=== PATIENT | female | born 1945 | race Caucasian/White ===

== ENCOUNTER 2017-01-14 19:56 | Emergency (ER) | payer MEDICARE, BC, OTHER ==
[2017-01-14] MEDS ORDERED: LORazepam 1 MG TAB PO STA (20:44)
[2017-01-14] MEDS ORDERED: LISINOPRIL-HCTZ 10-12.5 MG 1 EACH TAB PO STA (20:45)
--- NOTE | 2017-01-14 20:49 | ED ---
General Adult HPI - General Chief complaint: Recheck/Abnormal Lab/Rx Stated complaint: HBP Time Seen by Provider: 01/14/17 20:37 Source: patient, RN notes reviewed Mode of arrival: ambulatory Limitations: no limitations - History of Present Illness Initial comments: Patient is a pleasant 71-year-old female presenting to the emergency department with concerns right blood pressure. Patient was just diagnosed with high blood pressure last week. Patient was started on lisinopril 10/hydrochlorothiazide 12.5 daily. Patient has been checking her blood pressure regularly. Patient states normally systolic blood pressure has been around 140. Patient states today systolic blood pressure was near 200. Patient has been having some discomfort related to her shingles. Patient has also had some increased stress recently. Patient denies any chest pain. No weakness. No headache. No confusion. - Related Data Home Medications Medication Instructions Recorded Confirmed Allergy Tab(Unknown) 1 tab PO DAILY 01/14/17 01/14/17 Ibuprofen [Motrin] 200 - 400 mg PO Q6HR PRN 01/14/17 01/14/17 Lisinopril-Hctz 10-12.5 mg 1 tab PO DAILY 01/14/17 01/14/17 [Zestoretic 10-12.5] valACYclovir HCL [Valacyclovir] 1,000 mg PO TID PRN 01/14/17 01/14/17 Previous Rx's Medication Instructions Recorded ALPRAZolam [Xanax] 0.5 mg PO Q8HR PRN #10 tablet 01/14/17 Allergies Allergy/AdvReac Type Severity Reaction Status Date / Time codeine Allergy Nausea & Verified 01/14/17 20:16 Vomiting Review of Systems ROS Statement: Those systems with pertinent positive or pertinent negative responses have been documented in the HPI. ROS Other: All systems not noted in ROS Statement are negative. Constitutional: Denies: fever Eyes: Denies: eye pain ENT: Denies: ear pain Respiratory: Denies: cough, dyspnea Cardiovascular: Denies: chest pain Endocrine: Denies: fatigue Gastrointestinal: Denies: abdominal pain Genitourinary: Denies: urgency Musculoskeletal: Denies: back pain Skin: Reports: rash (Diagnosis shingles, is healing.) Neurological: Denies: headache, weakness, numbness, paresthesias, confusion Psychiatric: Reports: anxiety Past Medical History Past Medical History: Hypertension History of Any Multi-Drug Resistant Organisms: None Reported Past Surgical History: Hysterectomy Past Psychological History: Anxiety Smoking Status: Never smoker Past Alcohol Use History: None Reported Past Drug Use History: None Reported General Exam Limitations: no limitations General appearance: alert, in no apparent distress Head exam: Present: atraumatic Eye exam: Present: normal appearance, PERRL ENT exam: Present: normal oropharynx Neck exam: Present: normal inspection Respiratory exam: Present: normal lung sounds bilaterally Cardiovascular Exam: Present: regular rate, normal rhythm GI/Abdominal exam: Present: soft. Absent: tenderness Extremities exam: Present: normal inspection Neurological exam: Present: alert, oriented X3, CN II-XII intact. 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 DE 140. QRS 100. QT 384. QTC 446. Normal axis. Normal QRS. Normal ST-T. Medical Decision Making - Medical Decision Making Patient reexamined and resting comfortably in bed. Patient does request medication for anxiety at home. Blood pressure is improved to 185/85. - Lab Data Result diagrams: 01/14/17 21:00 01/14/17 21:00 Lab Results 01/14/17 01/14/17 01/14/17 Range/Units 21:00 21:00 21:16 WBC 8.0 (3.8-10.6) k/uL RBC 4.35 (3.80-5.40) m/uL Hgb 13.8 (11.4-16.0) gm/dL Hct 39.0 (34.0-46.0) % MCV 89.5 (80.0-100.0) fL MCH 31.8 (25.0-35.0) pg MCHC 35.5 (31.0-37.0) g/dL RDW 12.8 (11.5-15.5) % Plt Count 293 (150-450) k/uL Neutrophils % 74 % Lymphocytes % 17 % Monocytes % 6 % Eosinophils % 1 % Basophils % 1 % Neutrophils # 5.9 (1.3-7.7) k/uL Lymphocytes # 1.3 (1.0-4.8) k/uL Monocytes # 0.5 (0-1.0) k/uL Eosinophils # 0.1 (0-0.7) k/uL Basophils # 0.1 (0-0.2) k/uL Sodium 131 L (137-145) mmol/L Potassium 4.0 (3.5-5.1) mmol/L Chloride 94 L (98-107) mmol/L Carbon Dioxide 28 (22-30) mmol/L Anion Gap 9 mmol/L BUN 10 (7-17) mg/dL Creatinine 0.60 (0.52-1.04) mg/dL Est GFR (MDRD) Af Amer >60 (>60 ml/min/1.73 sqM) Est GFR (MDRD) Non-Af >60 (>60 ml/min/1.73 sqM) Glucose 99 (74-99) mg/dL Calcium 9.5 (8.4-10.2) mg/dL Total Bilirubin 0.7 (0.2-1.3) mg/dL AST 34 (14-36) U/L ALT 50 (9-52) U/L Alkaline Phosphatase 77 (38-126) U/L Total Protein 7.1 (6.3-8.2) g/dL Albumin 4.2 (3.5-5.0) g/dL Urine Color Light Yellow Urine Appearance Clear (Clear) Urine pH 7.5 (5.0-8.0) Ur Specific [place] 1.004 (1.001-1.035) Urine Protein Negative (Negative) Urine Glucose (UA) Negative (Negative) Urine Ketones Negative (Negative) Urine Blood Negative (Negative) Urine Nitrite Negative (Negative) Urine Bilirubin Negative (Negative) Urine Urobilinogen <2.0 (<2.0) mg/dL Ur Leukocyte Esterase Negative (Negative) - Radiology Data Radiology results: image reviewed (X-ray shows no acute process) Disposition Clinical Impression: Hypertension Disposition: HOME SELF-CARE Condition: Stable Instructions: Hypertension (ED) Additional Instructions: Please follow-up with your primary care physician in the next couple of days for recheck. If blood pressure is high you may take 1 additional dose of your blood pressure medication daily. Return for uncontrolled blood pressure, chest pain or weakness, worsening symptoms or other concerns. Prescriptions: ALPRAZolam [Xanax] 0.5 mg PO Q8HR PRN #10 tablet PRN Reason: Anxiety Referrals: None,Stated [Primary Care Provider] - 1-2 days Spenser Rice MD [STAFF PHYSICIAN] - 1-2 days
--- NOTE | 2017-01-14 21:13 | XR ---
EXAMINATION TYPE: XR chest 2V DATE OF EXAM: 01/14/2017 9:09 PM COMPARISON: NONE HISTORY: Hypertension per order. TECHNIQUE: Frontal and lateral views of the chest are obtained. FINDINGS: There is no focal air space opacity, pleural effusion, or pneumothorax seen. The cardiac silhouette size is within normal limits with ectatic thoracic aorta is seen. Retrocardiac opacity is consistent with moderate size hiatal hernia seen better on frontal view versus lateral view The osse ous structures are intact. IMPRESSION: No acute cardiopulmonary process.
[2017-01-14 21:23] LABS: ALT 50 U/L (9-52); AST 34 U/L (14-36); Alkaline Phosphatase 77 U/L (38-126); Anion Gap 9 mmol/L; Blood Urea Nitrogen 10 mg/dL (7-17); Calcium 9.5 mg/dL (8.4-10.2); Carbon Dioxide 28 mmol/L (22-30); Chloride 94 mmol/L (98-107); Glucose 99 mg/dL (74-99); Non-African American GFR(MDRD) >60 (>60 ml/min/1.73 sqM); Sodium 131 mmol/L (137-145); Total Bilirubin 0.7 mg/dL (0.2-1.3); Total Protein 7.1 g/dL (6.3-8.2)
[2017-01-14 21:24] LABS: Appearance,Urine Clear (Clear); Bilirubin,Urine Negative (Negative); Glucose,Urine (UA) Negative (Negative); Ketones,Urine Negative (Negative); Leukocyte Esterase,Urine Negative (Negative); Nitrite,Urine Negative (Negative); PH, Urine 7.5 (5.0-8.0); Protein,Urine Negative (Negative); Specific Gravity,Urine 1.004 (1.001-1.035); UA Billing (MACRO vs. MICRO) CHEM; Urobilinogen,Urine <2.0 mg/dL (<2.0)
[2017-01-14 21:31] LABS: Basophils # (A) 0.1 k/uL (0-0.2); Basophils % (A) 1 %; CH 33.3; CHCM 37.3; Eosinophils # (A) 0.1 k/uL (0-0.7); Eosinophils % (A) 1 %; HDW 2.67; HGB 13.8 gm/dL (11.4-16.0); Luc # (Auto) 0.15; Luc % (Auto) 2; Lymphocytes # (A) 1.3 k/uL (1.0-4.8); Lymphocytes % (A) 17 %; MCH 31.8 pg (25.0-35.0); MCHC 35.5 g/dL (31.0-37.0); MCV 89.5 fL (80.0-100.0); Mean Platelet Volume 6.8; Monocytes # (A) 0.5 k/uL (0-1.0); Monocytes % (A) 6 %; Neutrophils # (A) 5.9 k/uL (1.3-7.7); Neutrophils % (A) 74 %; RBC 4.35 m/uL (3.80-5.40); RDW 12.8 % (11.5-15.5); WBC (Perox) 8.12
[2017-01-14 22:10] VITALS: PULSE 77
[2017-01-14 22:40] VITALS: BP 175/94; RESP 16; TEMP 97.6
== END 2017-01-14 22:44 | disposition home or self-care (01) ==
LOC: EC 19:56
DX: I10 Essential (primary) hypertension (principal); F41.9 Anxiety disorder, unspecified; Z79.899 Other long term (current) drug therapy; Z88.5 Allergy status to narcotic agent
CPT/HCPCS: 36415; 71020; 80053; 81003; 85025; 93005; 99284

== ENCOUNTER 2020-12-15 14:04 | Emergency (ER) | payer MEDICARE, OTHER ==
[2020-12-15 14:23] VITALS: RESP 20
[2020-12-15] MEDS ORDERED: DIPH,PERTUS(ACELL)TETVAC-LF 0.5 ML VIAL IM ONE (14:46)
--- NOTE | 2020-12-15 14:46 | ED ---
Upper Extremity HPI - General Chief Complaint: Extremity Injury, Upper Stated Complaint: Rt Middle Finger Injury Time Seen by Provider: 12/15/20 14:38 Source: patient, RN notes reviewed Mode of arrival: ambulatory Limitations: no limitations - History of Present Illness MD Complaint: Injury to:: finger (right middle) Other Injuries: none Handedness: right Place: home Improves With: immobilization (elevation) Worsens With: other (palpation) Context: crush (caught in shed door last night at 1800) - Related Data Home Medications Medication Instructions Recorded Confirmed Allergy Tab(Unknown) 1 tab PO DAILY 01/14/17 01/14/17 Ibuprofen [Motrin] 200 - 400 mg PO Q6HR PRN 01/14/17 01/14/17 Lisinopril-Hctz 10-12.5 mg 1 tab PO DAILY 01/14/17 01/14/17 [Zestoretic 10-12.5] valACYclovir HCL [Valacyclovir] 1,000 mg PO TID PRN 01/14/17 01/14/17 Previous Rx's Medication Instructions Recorded ALPRAZolam [Xanax] 0.5 mg PO Q8HR PRN #10 tablet 01/14/17 Clindamycin HCl 450 mg PO Q8HR 10 Days #30 cap 12/15/20 Allergies Allergy/AdvReac Type Severity Reaction Status Date / Time codeine Allergy Nausea & Verified 01/14/17 20:16 Vomiting Penicillins Allergy Rash/Hives Verified 12/15/20 14:23 Review of Systems ROS Statement: Those systems with pertinent positive or pertinent negative responses have been documented in the HPI. ROS Other: All systems not noted in ROS Statement are negative. Past Medical History Past Medical History: Hypertension History of Any Multi-Drug Resistant Organisms: None Reported Past Surgical History: Hysterectomy Past Psychological History: Anxiety Smoking Status: Never smoker Past Alcohol Use History: None Reported Past Drug Use History: None Reported General Exam Limitations: no limitations Course Vital Signs 12/15/20 14:19 Temperature 98.3 F Pulse Rate 69 Respiratory 20 Rate Blood Pressure 149/94 O2 Sat by Pulse 99 Oximetry Procedures - Laceration Laceration #1 Consent Obtained: verbal consent Indication: laceration Site: hand (middle finger right hand) Description: avulsion Depth: simple, single layer Anesthetic Used: lidocaine 1% Anesthesia Technique: nerve block (digital block) Pre-repair: irrigated extensively (400cc) Type of Sutures: nylon Size of Sutures: 4-0 (loose) Technique: simple, interrupted Patient Tolerated Procedure: well Medical Decision Making - Medical Decision Making Case discussed with Dr. López, laceration/avulsion repaired with 5 loose simple interrupted sutures. Will place patient on antibiotics due to tuft fracture and have her follow up with hand this week. Patient and daughter agreeable to this plan. Disposition Clinical Impression: Laceration of finger Disposition: HOME SELF-CARE Condition: Good Instructions (If sedation given, give patient instructions): Finger Laceration (ED), Finger Fracture (ED) Additional Instructions: Wear splint and dressing until seen by hand surgery Dr. Chung this week Prescriptions: Clindamycin HCl 450 mg PO Q8HR 10 Days #30 cap Is patient prescribed a controlled substance at d/c from ED?: No Referrals: Spenser Rice MD [Primary Care Provider] - 1-2 days Chris Chung DO [Doctor of Osteopathic Medicine] - 1-2 days Time of Disposition: 16:10
--- NOTE | 2020-12-15 15:07 | XR ---
EXAMINATION TYPE: XR finger RT DATE OF EXAM: 12/15/2020 COMPARISON: None HISTORY: Caught in door, pain TECHNIQUE: 3 view right distal middle finger FINDINGS: There is a comminuted fracture of the tuft of the middle finger. Some diastases of the frac ture fragments is evident. Some soft tissue injury may be present. Soft tissue swelling is over the p ad of the digit. Remaining osseous structures are intact. Joint spaces are preserved. IMPRESSION: 1. Comminuted fracture distal tuft right middle finger
[2020-12-15] MEDS ORDERED: LIDOCAINE 1% INJ 10MG/ML (20 ML MDV) SQ ONE (15:14)
[2020-12-15 16:31] VITALS: BP 128/88; PULSE 66; TEMP 98
== END 2020-12-15 16:30 | disposition home or self-care (01) ==
LOC: EC 14:04
DX: S61.212A Laceration without foreign body of right middle finger without damage to nail, initial encounter (principal); F41.9 Anxiety disorder, unspecified; I10 Essential (primary) hypertension; Z79.1 Long term (current) use of non-steroidal anti-inflammatories (NSAID); Z88.0 Allergy status to penicillin; Z23 Encounter for immunization; W23.0XXA Caught, crushed, jammed, or pinched between moving objects, initial encounter
CPT/HCPCS: 73140; 90715; 99283; 12001; 90471; J2001